=== PATIENT | male | born 1980 | race Caucasian/White ===

== ENCOUNTER 2019-12-22 11:16 | Emergency (ER) | payer OTHER ==
[~2019-12-22] VITALS: Ht 175.3 cm; Wt 68.6 kg
[~2019-12-22 11:16] MED LIST: KETO10TA2 PO; OXYC-145 PO
[2019-12-22 11:26] VITALS: BP 137/81
[2019-12-22] MEDS ORDERED: ketorolac trometh inj. 60 MG/2 ML VIAL IM ONE (11:45)
[2019-12-22] MEDS ORDERED: MELO-100 PO (11:47)
[2019-12-22] MEDS ORDERED: ketorolac trometh. 30mg/ml inj. IM ONE (11:55)
== END 2019-12-22 11:58 | disposition home or self-care (01) ==
LOC: ER 11:16
DX: K08.89 Other specified disorders of teeth and supporting structures (principal); Z88.6 Allergy status to analgesic agent; Z88.5 Allergy status to narcotic agent
CPT/HCPCS: 96372; 99283; J1885

== ENCOUNTER 2022-06-17 04:14 | Emergency (ER) | payer SELFPAY ==
[~2022-06-17] VITALS: Ht 175.3 cm; Wt 65.8 kg
[~2022-06-17 04:14] MED LIST changes: +MELO-100 PO
[2022-06-17 06:37] LABS: CLARITY,URINE CLOUDY (Clear); GLUCOSE, URINE NEGATIVE (Neg); KETONES,URINE 40 mg/dl (Neg); LEUKOCYTE ESTERASE ,URINE TRACE (Neg); OCCULT BLOOD,URINE LARGE (Neg); PH,URINE 6.5 (4.8-8.0); PROTEIN,URINE 100 mg/dl (Neg)
[2022-06-17] MEDS ORDERED: tamsulosin 0.4mg capsule PO SCH (06:40)
[2022-06-17] MEDS ORDERED: ketorolac tromethamine 15mg/ml inj. IV ONE (06:40)
[2022-06-17] MEDS ORDERED: NAPR-56 PO (06:42)
[2022-06-17] MEDS ORDERED: FLO0.4C PO (06:42)
[2022-06-17 06:43] LABS: BASOPHILS % (AUTO) 0.9 % (0-1); EOSINOPHILS # (AUTO) 0.3 X10'3 (0-0.9); EOSINOPHILS % (AUTO) 5.8 % (0-6); HEMOGLOBIN 14.4 g/dl (14.0-17.9); LYMPHOCYTES % (AUTO) 21.2 % (21-51); MEAN CORPUSCULAR HEMOGLOBIN 30.6 PG (27.0-31.0); MEAN CORPUSCULAR HGB CONC 33.6 g/dL (33.0-36.5); MEAN PLATELET VOLUME 9.3 FL (7.4-10.4); MONOCYTES # (AUTO) 0.4 X10'3 (0-0.9); NEUTROPHILS # (AUTO) 3.2 X10'3 (1.8-7.7); NEUTROPHILS % (AUTO) 64.1 % (42-75); PLATELET COUNT 156 X10'3 (140-440); RED BLOOD COUNT 4.72 X10'6 (4.70-6.10); WHITE BLOOD COUNT 4.9 X10'3 (4.5-11.0)
[2022-06-17 06:47] LABS: COLOR,URINE AMBER (Yellow); UA COLLECTION TYPE CLN CATCH MIDSTREAM
[2022-06-17 06:48] LABS: NITRITES, URINE NEGATIVE (Neg)
[2022-06-17 06:55] LABS: ALANINE AMINOTRANSFERASE 36 U/L (12-78); ALBUMIN 3.9 G/DL (3.4-5.0); ALBUMIN/GLOBULIN RATIO 1.2 (1.1-1.5); ALKALINE PHOSPHATASE 44 IU/L (46-116); ANION GAP 8 (8-16); ASPARTATE AMINO TRANSFERASE 27 U/L (10-37); BILIRUBIN,TOTAL 0.7 MG/DL (0.1-1.0); BLOOD UREA NITROGEN 11 MG/DL (7-18); BUN/CREATININE RATIO 15.3 (5.4-32.0); CHLORIDE 107 MMOL/L (99-107); CREATININE 0.72 MG/DL (0.60-1.10); GLUCOSE 73 MG/DL (70-104); POTASSIUM 4.3 MMOL/L (3.5-5.1); SODIUM 139 MMOL/L (135-145); TOTAL CARBON DIOXIDE 24.2 MMOL/L (24-32); TOTAL PROTEIN 7.1 G/DL (6.4-8.2); eGFR > 90 ML/MIN
[2022-06-17 06:59] LABS: BACTERIA,URINE 1+ /HPF (Neg); RBC,URINE TNTC /HPF (0-2)
[2022-06-17 07:00] LABS: CAL OXALATE CRYSTALS FEW /HPF (NEGATIVE); SQUAMOUS EPITHELIAL CELL,UR NONE SEEN /LPF (FEW); WBC,URINE 0-4 /HPF (0-4)
[2022-06-17 07:01] LABS: CALCIUM 8.6 MG/DL (8.5-10.1)
[2022-06-17 08:33] VITALS: BP 93/68
== END 2022-06-17 08:37 | disposition home or self-care (01) ==
LOC: ER 04:14
DX: N20.0 Calculus of kidney (principal); Z88.5 Allergy status to narcotic agent; Z88.6 Allergy status to analgesic agent
CPT/HCPCS: 36415; 80053; 81001; 85025; 87088; 99283; J1885

== ENCOUNTER 2023-03-16 07:01 | Emergency (ER) | payer MEDICAID ==
[~2023-03-16] VITALS: Ht 175.3 cm; Wt 66.2 kg
[2023-03-16] MEDS ORDERED: mag hydrox/Alum hydrox/simeth 30ml oral suspension PO ONE (07:20)
[2023-03-16] MEDS ORDERED: pantoprazole 40mg IV 40 MG in normal saline 100ml IV soln 100 ML IV ONE (07:20)
[2023-03-16] MEDS ORDERED: LIDOcaine Viscous 15ml cup MM ONE (07:20)
[2023-03-16] MEDS ORDERED: ondansetron/PF 4mg/2ml inj IV ONE (07:20)
[2023-03-16] MEDS ORDERED: pantoprazole 40MG/NS 100ML BAG 100 ML IV ONE (07:35)
[2023-03-16 08:03] LABS: CLARITY,URINE SLIGHTLY CLOUDY (Clear); COLOR,URINE YELLOW (Yellow); GLUCOSE, URINE NEGATIVE (Neg); KETONES,URINE 40 mg/dl (Neg); LEUKOCYTE ESTERASE ,URINE NEGATIVE (Neg); NITRITES, URINE NEGATIVE (Neg); OCCULT BLOOD,URINE NEGATIVE (Neg); PH,URINE 7.5 (4.8-8.0); PROTEIN,URINE 30 mg/dl (Neg); UROBILINOGEN,URINE 0.2 E.U/dL (0.2-1.0)
[2023-03-16 08:06] LABS: UA COLLECTION TYPE CLN CATCH MIDSTREAM
[2023-03-16] MEDS ORDERED: metoclopramide 5 mg/ml inj IV ONE (08:10)
[2023-03-16 08:16] LABS: BACTERIA,URINE FEW /HPF (Neg); MUCUS STRANDS MANY /LPF (Neg); RBC,URINE 0-2 /HPF (0-2); SQUAMOUS EPITHELIAL CELL,UR MODERATE /LPF (FEW); WBC,URINE 0-4 /HPF (0-4)
[2023-03-16 08:17] LABS: BASOPHILS % (AUTO) 0.7 % (0-1); EOSINOPHILS # (AUTO) 0.2 X10'3 (0-0.9); EOSINOPHILS % (AUTO) 4.5 % (0-6); HEMATOCRIT 42.3 % (42.0-52.0); HEMOGLOBIN 14.3 g/dl (14.0-17.9); LYMPHOCYTES # (AUTO) 1.1 X10'3 (1.1-4.8); LYMPHOCYTES % (AUTO) 19.4 % (21-51); MEAN CORPUSCULAR HEMOGLOBIN 30.2 PG (27.0-31.0); MEAN CORPUSCULAR HGB CONC 33.7 g/dL (33.0-36.5); MEAN CORPUSCULAR VOLUME 89.6 FL (78-98); MEAN PLATELET VOLUME 9.3 FL (7.4-10.4); MONOCYTES # (AUTO) 0.4 X10'3 (0-0.9); MONOCYTES % (AUTO) 7.1 % (2-12); NEUTROPHILS # (AUTO) 3.8 X10'3 (1.8-7.7); NEUTROPHILS % (AUTO) 68.3 % (42-75); PLATELET COUNT 158 X10'3 (140-440); RED BLOOD COUNT 4.72 X10'6 (4.70-6.10); WHITE BLOOD COUNT 5.6 X10'3 (4.5-11.0)
[2023-03-16 08:29] LABS: ALANINE AMINOTRANSFERASE 37 U/L (12-78); ALBUMIN/GLOBULIN RATIO 1.4 (1.1-1.5); ALKALINE PHOSPHATASE 44 IU/L (46-116); ANION GAP 8 (8-16); ASPARTATE AMINO TRANSFERASE 26 U/L (10-37); BILIRUBIN,TOTAL 0.7 MG/DL (0.1-1.0); BLOOD UREA NITROGEN 7 MG/DL (7-18); BUN/CREATININE RATIO 10.9 (10.0-20.0); CALCIUM 9.2 MG/DL (8.5-10.1); CHLORIDE 105 MMOL/L (99-107); CREATININE 0.64 MG/DL (0.60-1.10); GLUCOSE 103 MG/DL (70-104); LIPASE 121 U/L (73-393); POTASSIUM 4.1 MMOL/L (3.5-5.1); SODIUM 140 MMOL/L (135-145); TOTAL CARBON DIOXIDE 26.9 MMOL/L (24-32); TOTAL PROTEIN 6.9 G/DL (6.4-8.2); eGFR > 90 ML/MIN
[2023-03-16] MEDS ORDERED: SUCR1ORA12 PO (08:32)
[2023-03-16] MEDS ORDERED: ONDA4TAB12 PO (08:32)
[2023-03-16] MEDS ORDERED: PANT20TA2 PO (08:32)
[2023-03-16 09:01] VITALS: BP 124/77
== END 2023-03-16 09:03 | disposition home or self-care (01) ==
LOC: ER 07:01
DX: R11.2 Nausea with vomiting, unspecified (principal); Z87.442 Personal history of urinary calculi; Z88.5 Allergy status to narcotic agent; Z88.6 Allergy status to analgesic agent; Z79.899 Other long term (current) drug therapy
CPT/HCPCS: 36415; 80053; 81001; 83690; 85025; 96365; 96375; 99284; C9113; J2405; J2765